=== PATIENT | female | born 1955 | race Caucasian/White ===

== ENCOUNTER 2020-04-01 18:07 | Emergency (ER) | payer OTHER ==
[~2020-04-01] VITALS: Ht 165.1 cm; Wt 97.7 kg
[2020-04-01 18:14] VITALS: Ht 165.1 cm; Wt 97.7 kg
[2020-04-01] MEDS ORDERED: PEPCID40 MG PO (18:15)
[2020-04-01] MEDS ORDERED: OMEPRAZOLE40 MG PO (18:15)
[2020-04-01] MEDS ORDERED: RITALIN10 MG PO ×2 (18:16)
[2020-04-01] MEDS ORDERED: SYNTHROID50 MCG PO (18:17)
[2020-04-01] MEDS ORDERED: CYMBALTA60 MG PO (18:17)
[2020-04-01] MEDS ORDERED: BUPROPION XL300 MG PO (18:17)
[2020-04-01] MEDS ORDERED: LIPITOR40 MG PO (18:18)
[2020-04-01] MEDS ORDERED: FIORICET/ESGIC1 TAB PO (18:18)
[2020-04-01] MEDS ORDERED: CELEBREX200 MG PO (18:18)
[2020-04-01] MEDS ORDERED: TORADOL10 MG PO (18:19)
[2020-04-01] MEDS ORDERED: CYCLOBENZAPRINE10 MG PO (19:03)
[2020-04-01 19:34] VITALS: BP 139/80
== END 2020-04-01 19:34 | disposition home or self-care (01) ==
LOC: D.ER 18:07
DX: R51 Headache (principal); E03.9 Hypothyroidism, unspecified; K21.9 Gastro-esophageal reflux disease without esophagitis

== ENCOUNTER 2020-06-27 21:42 | Observation (INO) | payer BC, MEDICARE ==
[~2020-06-27] VITALS: Ht 165.1 cm; Wt 99.8 kg
--- NOTE | ~2020-06-27 | EC ---
PATIENT:MALATHI MEDELLIN DATE OF SERVICE: 06/27/20 SEX: F MEDICAL RECORD: [id number] DATE OF : 53 LOCATION:[facility] AGE OF PATIENT: 64 ADMISSION DATE: 06/27/20 REFERRING PHYSICIAN: INTERPRETING PHYSICIAN: VIVIAN PADILLA MD ECHOCARDIOGRAM REPORT ECHO CHARGES 4 ECHO COMPLETE Date: 06/29/20 CLINICAL DIAGNOSIS: SOB, PE ECHOCARDIOGRAPHIC MEASUREMENTS (adult normal given) AC root (d.<3.7cm) 2.2 cm LV Septum d (<1.2 cm> 0.7 cm Valve Excursion 1.2 cm LV Septum (systole) 1.2 cm Left Atria (s.<4.0cm> 4.0 cm LVPW d(<1.2cm) 0.8 cm RV (d.<2.3cm) 2.2 cm LVPW (sytole) 1.2 cm LV diastole(<5.6CM) 5.0 cm MV E-F(>70mm/sec) cm LV systole 3.9 cm LVOT Diameter 1.5 cm MV exc.(>10mm) cm Est.ejection fraction (50-75%) % DOPPLER: LVIT cm/sec A 69 cm/sec E 77 cm/sec LA cm/sec RVSP 15.7 mmHg LVOT 112 cm/sec AOP1/2T m/s Asc. Ao 174 cm/sec RVOT 60 cm/sec RA cm/sec PA 103 cm/sec AV Gradient Peak 12.1 mmHg AV Mean 6.0 mmHg AV Area 1.3 cm MV Gradient Peak 3.8 mmHg MV Mean 1.9 mmHg MV Area cm COMMENTS: Auto Battery Builder: Ivan [facility] Fire Apparatus Engineer: 3 Dr. Clay TAPE# PACS Pericardial Effusion N DATE OF SERVICE: Adequate 2D, color flow imaging, spectral Doppler, and M-Mode. No LVH. LV internal dimension is normal. Wall motion is normal. EF is greater than or equal to 55%. Aortic valve is tricuspid. No evidence of stenosis by Doppler interrogation. Left atrium is normal at 4 cm. Mitral valve shows no prolapse. Trivial MR. Right-sided chambers are grossly normal. Trivial TR. TRANSINT:[id number] Voice Confirmation ID: [id number] DOCUMENT ID: [id number] ECHOCARDIOGRAM REPORT [id number] MALATHI MEDELLIN VIVIAN PADILLA MD CC: [id number] DICTATION DATE: 07/01/20 1008 RETURN TO SERVICE INSPECTOR: 07/01/20 190 DIS IN 06/29/20 [facility] [address] [id number]
[~2020-06-27 21:42] MED LIST: BUPROPION XL300 MG PO; CELEBREX200 MG PO; CYCLOBENZAPRINE10 MG PO; CYMBALTA60 MG PO; FIORICET/ESGIC1 TAB PO; LIPITOR40 MG PO; OMEPRAZOLE40 MG PO; PEPCID40 MG PO; RITALIN10 MG PO; SYNTHROID50 MCG PO; TORADOL10 MG PO
[2020-06-27] MEDS ORDERED: FUROSEMIDE20 MG PO (22:04)
[2020-06-27 22:38] LABS: CALC OSMOLALITY 278 mosm/kg (275-300); CALCIUM 8.6 mg/dL (8.5-10.1); CARBON DIOXIDE 28.1 mmol/L (21.0-32.0); CHLORIDE - SERUM 106 mmol/L (98-107); CREATININE - SERUM 1.2 mg/dL (0.6-1.3); GLUCOSE 88 mg/dL (74-106); POTASSIUM - SERUM 4.2 mmol/L (3.5-5.1); SODIUM 139 mmol/L (136-145); UREA NITROGEN 19 mg/dL (7-18); eGFR NON AFRICAN AMERICAN 48 mL/min (90-120)
[2020-06-27 22:44] LABS: BASOPHILS 1.1 % (0-2); EOSINOPHILS 5.2 % (0-7); HEMATOCRIT 40.6 % (36.0-48.0); HEMOGLOBIN 13.2 g/dL (12-16); IMMATURE GRANULOCYTES 0.1 % (0-5); LYMPHOCYTES 34.8 % (15-50); MCH 28.8 pg (26.0-34.0); MCHC 32.5 g/dL (31.0-37.0); MCV 88.5 fL (80.0-100.0); MEAN PLATELET VOLUME 10.4 fL (7.4-10.4); MONOCYTES 8.2 % (2-11); NEUTROPHILS 50.6 % (40-80); PLATELET COUNT 325 10x3/uL (130-400); RBC 4.59 10x6/uL (4.00-5.40); RDW 13.4 % (11.5-14.5); WBC 7.3 10x3/uL (4.8-10.8)
[2020-06-27 22:52] LABS: ALBUMIN 3.5 g/dL (3.4-5.0); ALKALINE PHOSPHATASE 99 U/L (30-120); ALT (SGPT) 24 U/L (10-68); BILIRUBIN - TOTAL 0.32 mg/dL (0.2-1.3); C-REACTIVE PROTEIN 0.4 mg/dL (0.0-0.9); MAGNESIUM - SERUM 2.3 mg/dL (1.8-2.4); PRO BNP 53 pg/mL (0-125); PROTEIN - SERUM 6.8 g/dL (6.4-8.2); THYROID STIMULATING HORMONE 2.14 uIU/mL (0.36-3.74); TROPONIN-I < 0.017 ng/mL (0.000-0.060)
[2020-06-27 23:00] VITALS: BP 131/72
[2020-06-28] VITALS (9 sets, daily range): BP systolic 106–167; BP diastolic 55–70; BMI 36.6
[2020-06-28 07:36] LABS: BASOPHILS 1.4 % (0-2); EOSINOPHILS 8.4 % (0-7); HEMATOCRIT 37.9 % (36.0-48.0); HEMOGLOBIN 12.1 g/dL (12-16); IMMATURE GRANULOCYTES 0.2 % (0-5); LYMPHOCYTES 37.6 % (15-50); MCH 28.5 pg (26.0-34.0); MCHC 31.9 g/dL (31.0-37.0); MCV 89.2 fL (80.0-100.0); MEAN PLATELET VOLUME 9.5 fL (7.4-10.4); MONOCYTES 8.9 % (2-11); NEUTROPHILS 43.5 % (40-80); PLATELET COUNT 290 10x3/uL (130-400); RBC 4.25 10x6/uL (4.00-5.40); RDW 13.5 % (11.5-14.5); WBC 5.7 10x3/uL (4.8-10.8)
[2020-06-28 08:03] LABS: ANION GAP 12.6 mmol/L (8-16); CALCIUM 8.4 mg/dL (8.5-10.1); CARBON DIOXIDE 25.9 mmol/L (21.0-32.0); CREATININE - SERUM 1.2 mg/dL (0.6-1.3); MAGNESIUM - SERUM 2.2 mg/dL (1.8-2.4); PHOSPHOROUS 3.4 mg/dL (2.5-4.9); POTASSIUM - SERUM 3.5 mmol/L (3.5-5.1)
--- NOTE | 2020-06-28 11:45 | NUR ---
COVID RESULTS= NEGATIVE. ISOLATION PERCAUTIONS D/C'D. LUNCH SERVED
--- NOTE | 2020-06-28 14:29 | NUR ---
called for a classroom monitor
--- NOTE | 2020-06-28 20:00 | NUR ---
PT SITTING UP IN BED WITHOUT DISTRESS, AOX4. IV RIGHT FA INFUSING NS @ 75. ON ROOM AIR. STATES NO COUGH AND SOB WITH EXERTION HAS GOTTEN BETTER. BILAT LOWER LOBES DIMINISHED. DENIES NEEDS AT THIS TIME. CL IN REACH, WILL CTM
--- NOTE | 2020-06-28 23:30 | NUR ---
PT LYING IN BED SLEEPING WITHOUT DISTRESS, WILL CTM
[2020-06-29 00:16] LABS: BILIRUBIN NEGATIVE (NEGATIVE); KETONE NEGATIVE (NEGATIVE); NITRITE NEGATIVE (NEGATIVE); UROBILINOGEN NORMAL (NORMAL)
[2020-06-29 03:49] VITALS: BP 145/66
[2020-06-29 07:08] LABS: BASOPHILS 1.5 % (0-2); EOSINOPHILS 5.9 % (0-7); HEMATOCRIT 40.2 % (36.0-48.0); IMMATURE GRANULOCYTES 0.3 % (0-5); LYMPHOCYTES 26.3 % (15-50); MCH 28.7 pg (26.0-34.0); MCHC 32.3 g/dL (31.0-37.0); MCV 88.7 fL (80.0-100.0); MEAN PLATELET VOLUME 10.4 fL (7.4-10.4); MONOCYTES 6.7 % (2-11); NEUTROPHILS 59.3 % (40-80); PLATELET COUNT 306 10x3/uL (130-400); RBC 4.53 10x6/uL (4.00-5.40); RDW 13.1 % (11.5-14.5); WBC 6.1 10x3/uL (4.8-10.8)
[2020-06-29 07:09] LABS: ANION GAP 12.2 mmol/L (8-16); CALCIUM 8.2 mg/dL (8.5-10.1); CARBON DIOXIDE 24.7 mmol/L (21.0-32.0); MAGNESIUM - SERUM 2.2 mg/dL (1.8-2.4); PHOSPHOROUS 3.2 mg/dL (2.5-4.9); POTASSIUM - SERUM 4.9 mmol/L (3.5-5.1)
[2020-06-29 07:27] VITALS: BP 146/74
[2020-06-29 11:18] VITALS: BP 140/52
[2020-06-29 12:18] VITALS: Ht 165.1 cm; Wt 99.8 kg
[2020-06-29] MEDS ORDERED: XARELTO15 MG PO (15:19)
[2020-06-29] MEDS ORDERED: AZITHROMYCIN500 MG PO (15:21)
[2020-06-29] MEDS ORDERED: OMNICEF300 MG PO (15:21)
[2020-06-29] MEDS ORDERED: PROAIR HFA8.5 G1 INH (15:24)
--- NOTE | 2020-06-29 17:30 | NUR ---
PATIENT LEFT FLOOR VIA WHEELCHAIR
--- NOTE | 2020-06-29 17:36 | NUR ---
DISCHARGE TEACHING COMPLETE. NO FURTHER QUESTIONS. IV CATH REMOVED, TIP INTACT. ALL BELONGINGS GATHERED. FINISHING DINNER THEN WILL LEAVE UNIT.
== END 2020-06-29 17:30 | disposition home or self-care (01) ==
LOC: D.ER 21:42 → D.EDHOLD 23:46 → D.MS 23:46 → D.EDHOLD 23:46 → OBSVTIME 23:46 → D.MS 06-28 12:38
PROVIDERS: Family Medicine; ADMIT Family Medicine; ATTEND Family Medicine
DX: J18.9 Pneumonia, unspecified organism (principal); Z20.828 Contact with and (suspected) exposure to other viral communicable diseases; I10 Essential (primary) hypertension; E78.5 Hyperlipidemia, unspecified; Z85.53 Personal history of malignant neoplasm of renal pelvis; K21.9 Gastro-esophageal reflux disease without esophagitis; F90.9 Attention-deficit hyperactivity disorder, unspecified type; F32.9 Major depressive disorder, single episode, unspecified; E03.9 Hypothyroidism, unspecified; M79.7 Fibromyalgia; M19.90 Unspecified osteoarthritis, unspecified site; I26.99 Other pulmonary embolism without acute cor pulmonale

== ENCOUNTER → 2021-01-02 14:51 | Outpatient (CLI) | payer BC ==
[2020-11-05 21:50] VITALS: BMI 46.6
[~2021-01-02 14:51] MED LIST changes: +ALBUTEROL SULF8.5 GM INH; +AZITHROMYCIN500 MG PO; +DECADRON4 MG PO; +FUROSEMIDE20 MG PO; +MEDROL DOSE PACK4 MG PO; +MELATONIN 3 MG1 TAB PO; +OMNICEF300 MG PO; +PROAIR HFA8.5 G1 INH; +VITAMIN C PO; +VITAMIN D325 MC1 PO; +XARELTO15 MG PO; +ZPAK PO
== END | disposition home or self-care (01) ==
LOC: D.LAB 14:51
PROVIDERS: ATTEND Internal Medicine Pulmonary Disease
DX: Z20.822 Contact with and (suspected) exposure to COVID-19 (principal)

== ENCOUNTER → 2021-01-08 15:48 | Outpatient (CLI) | payer BC ==
[2020-11-05 21:50] VITALS: BMI 46.6
== END | disposition home or self-care (01) ==
LOC: D.RT 01-07 16:00
PROVIDERS: ATTEND Internal Medicine Pulmonary Disease
DX: R06.00 Dyspnea, unspecified (principal); Z20.822 Contact with and (suspected) exposure to COVID-19

== ENCOUNTER → 2021-01-23 12:21 | Outpatient (CLI) | payer BC ==
[2020-11-05 21:50] VITALS: BMI 46.6
[2021-01-25 11:12] LABS: PROTEIN S - FREE 100 % (57-157); PROTEIN S - FUNCTIONAL 87 % (63-140); PROTEIN S - TOTAL 84 % (60-150)
[2021-01-25 12:11] LABS: ANTITHROMBIN III ANTIGEN 124 % (72-124); FACTOR V ACTIVITY 118 % (70-150)
== END | disposition home or self-care (01) ==
LOC: D.LAB 12:21
PROVIDERS: ATTEND Internal Medicine Pulmonary Disease
DX: J98.4 Other disorders of lung (principal)

== ENCOUNTER 2021-02-27 14:00 | Outpatient (CLI) | payer BC ==
[2020-11-05 21:50] VITALS: BMI 46.6
== END 2021-02-27 23:59 | disposition home or self-care (01) ==
LOC: D.MAMMO 14:00
PROVIDERS: ATTEND Family Medicine
DX: Z12.31 Encounter for screening mammogram for malignant neoplasm of breast (principal)

== ENCOUNTER 2021-05-01 14:43 | Emergency (ER) | payer BC ==
[2020-11-05 21:50] VITALS: Ht 165.1 cm; Wt 97.7 kg
[~2021-05-01] VITALS: Ht 165.1 cm; Wt 97.7 kg
[2021-05-01 14:48] VITALS: BP 126/67
== END 2021-05-01 16:38 | disposition home or self-care (01) ==
LOC: D.ER 14:43
DX: J45.901 Unspecified asthma with (acute) exacerbation (principal); K21.9 Gastro-esophageal reflux disease without esophagitis; R06.02 Shortness of breath

== ENCOUNTER 2021-05-03 08:38 | Emergency (ER) | payer BC ==
[~2021-05-03] VITALS: Ht 165.1 cm; Wt 98.2 kg
[2021-05-03 08:40] VITALS: Ht 165.1 cm; Wt 98.2 kg
[2021-05-03 09:29] LABS: BASOPHILS 0.2 % (0-2); HEMATOCRIT 38.7 % (36.0-48.0); HEMOGLOBIN 12.1 g/dL (12-16); LYMPHOCYTES 26.5 % (15-50); MCH 24.1 pg (26.0-34.0); MCHC 31.4 g/dL (31.0-37.0); MCV 76.6 fL (80.0-100.0); MEAN PLATELET VOLUME 8.2 fL (7.4-10.4); MONOCYTES 9.9 % (2-11); NEUTROPHILS 61.4 % (40-80); PLATELET COUNT 451 10x3/uL (130-400); RBC 5.05 10x6/uL (4.00-5.40); RDW 18.1 % (11.5-14.5); WBC 8.9 10x3/uL (4.8-10.8)
[2021-05-03 09:40] LABS: CALC OSMOLALITY 286 mosm/kg (275-300); CALCIUM 9.8 mg/dL (8.5-10.1); CARBON DIOXIDE 25.3 mmol/L (21.0-32.0); CHLORIDE - SERUM 101 mmol/L (98-107); CREATININE - SERUM 1.9 mg/dL (0.6-1.3); GLUCOSE 95 mg/dL (74-106); POTASSIUM - SERUM 4.6 mmol/L (3.5-5.1); SODIUM 137 mmol/L (136-145); UREA NITROGEN 50 mg/dL (7-18); eGFR NON AFRICAN AMERICAN 28 mL/min (90-120)
[2021-05-03 09:43] LABS: APTT 30.5 SECONDS (22.8-39.4)
[2021-05-03 09:45] LABS: D-DIMER-QUANTITATIVE < 0.27 ug/mLFEU (0.20-0.54)
[2021-05-03 09:53] LABS: ALKALINE PHOSPHATASE 63 U/L (30-120); ALT (SGPT) 26 U/L (10-68); BILIRUBIN - TOTAL 0.32 mg/dL (0.2-1.3); PRO BNP 46 pg/mL (0-125); PROTEIN - SERUM 7.5 g/dL (6.4-8.2)
[2021-05-03 09:57] LABS: TROPONIN-I < 0.017 ng/mL (0.000-0.060)
[2021-05-03 12:59] VITALS: BP 141/60
== END 2021-05-03 12:52 | disposition home or self-care (01) ==
LOC: D.ER 08:38
PROVIDERS: Emergency Medicine
DX: R06.00 Dyspnea, unspecified (principal); R06.02 Shortness of breath; K21.9 Gastro-esophageal reflux disease without esophagitis; Z86.711 Personal history of pulmonary embolism